=== PATIENT | female | born 1990 | race Caucasian/White ===

== ENCOUNTER → 2023-11-11 | Emergency (ER) | payer SELFPAY ==
[~2023-11-11] MED LIST: AZITHROMYCIN 250 MG TAB ONE; CODEINE 30MG/APAP 300MG TAB ONE; DIPHENHYDRAMINE 25 MG TAB/CAP ONE; IBUPROFEN 400 MG TAB ONE; PROMETHAZINE 25 MG TABLET ONE
--- OUTSIDE RECORDS SUMMARY | 2023-11-11 04:29 | XMS REPORT | Continuity of Care Document ---
Author Name Unknown Address [address] [facility] [address] [place] [address] [facility] Address [address] [facility]. [address] [place] [address] Care Team Providers Care Superintendent Plant Name Role Phone RALPH RUIZ Primary Care Physician Unavailab le RADIOLOGY Attending Clinician Unavailable Radiology Attending Clinician Unavailable Doctor Unassigned, [place] Attending Clinician U navailable Akinsipe Marisol WILKINS Attending Clinician + Cristiane Beltran Attending Clinician [phone] CRISTIANE LANIER Attending Clinician Unavailabl RALPH Fernandez Admitting Clinician Unavailable Payers Payer Name Policy Type Policy Number Effective Date Expirati on Date Source [place] [employer] [id number] 2021 00:00:00 Problems Condition Name Condition Details Condition Category Status Onset Date Resolution Date Last Treatment Date Treating Clinician Comments Source Encounter for surveillan ce of contracept jr pills Encounter for surveillan ce of contracept jr pills Disease Active 7- 00:00: 00 [facility] Excessive or frequent menstruati on Excessive or frequent menstruati on Disease Active 0 6- 00:00: 00 [facility] Well woman exam Well woman exam Disease Active 0 - 00:00: 00 [facility] Well woman exam Well woman exam Disease Active 03-04 00:00: 00 [facility] History of tubal ligation History of tubal ligation Disease Active 02-11 00:00: 00 [facility] Rubella non-immune status, antepartum Rubella non-immune status, antepartum Disease Active 06-10 00:00: 00 Overview: Address in PP visit. 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 Plan repeat pap with cotesting in 2019 [facility] Moderate dysplasia of cervix Moderate dysplasia of cervix Disease Active 03-29 00:00: 00 Overview: Formattin g of this note might be different from the original. LEEP 05/26/2013- path dysplasia negative margins. Os check healing wellFor repeat pap 11/2013: Done 12/21/2013 : __ [facility] Allergies, Adverse Reactions, Alerts Allergy Name Allergy Type Status Severity Reaction(s) Onset Date Inactive Date Treating Clinician Comments Source AMPICILL IN DRUG INGREDI Active Unknown-Cmnt 01-19 00:00: 00 [facility] Ampicill in Propensi ty to adverse reaction s Active Unknown - See comments 01-19 00:00: 00 Taken as a child, pt is unsure what side effects/ reaction she had. [facility] Social History Social Habit Start Date Stop Date Quantity Comments Source Exposure to SARS-CoV-2 (event) Not sure [facility] Tobacco use and exposure 2020-06-14 00:00:00 2020-06-14 00:00:00 Never used [facility] Alcohol intake 2020-06-14 00:00:00 2020-06-14 00:00:00 0 /d [facility] Alcohol Comment 2019-05-19 00:00:00 2019-05-19 00:00:00 occasional [facility] Sex Assigned At 1990 00:00:00 1990 00:00:00 [facility] Smoking Status Start Date Stop Date Source Never smoked tobacco [facility] Medications Ordered Medication Name Filled Medication Name Start Date Stop Date Current Medication? Ordering Clinician Indication Dosage Frequency Signature (SIG) Comments Components Source norethindro ne-e.estrad ioL-iron (MICROGESTI N FE) 1.5 mg-30 mcg (21)/75 mg (7) per tablet 2019-11 00:00: 00 Yes [id number] 1{tbl} Take 1 tablet by mouth daily. [facility] norethindro ne-e.estrad ioL-iron (MICROGESTI N FE) 1.5 mg-30 mcg (21)/75 mg (7) per tablet 2019-11 00:00: 00 Yes [id number] 1{tbl} Take 1 tablet by mouth daily. [facility] norethindro ne-e.estrad ioL-iron (MICROGESTI N FE) 1.5 mg-30 mcg (21)/75 mg (7) per tablet 2019-11 00:00: 00 Yes [id number] 1{tbl} Take 1 tablet by mouth daily. [facility] norethindro ne-e.estrad ioL-iron (MICROGESTI N FE) 1.5 mg-30 mcg (21)/75 mg (7) per tablet 2019-11 00:00: 00 Yes [id number] 1{tbl} Take 1 tablet by mouth daily. [facility] norethindro ne-e.estrad iol-iron (MICROGESTI N FE) 1.5 mg-30 mcg (21)/75 mg (7) per tablet 06-14 00:00: 00 Yes [id number] 1{tbl} Take 1 tablet by mouth daily. [facility] norethindro ne-e.estrad iol-iron (MICROGESTI N FE) 1.5 mg-30 mcg (21)/75 mg (7) per tablet 06-14 00:00: 00 Yes [id number] 1{tbl} Take 1 tablet by mouth daily. [facility] norethindro ne-e.estrad iol-iron (MICROGESTI N FE) 1.5 mg-30 mcg (21)/75 mg (7) per tablet 06-14 00:00: 00 10-26 00:00 :00 No [id number] 1{tbl} Take 1 tablet by mouth daily. [facility] iol-iron (MICROGESTI N FE) 1.5 mg-30 mcg (21)/75 mg (7) per tablet 03-16 00:00: 00 Yes [id number] 1{tbl} Take 1 tablet by mouth daily. [facility] iol-iron (MICROGESTI N FE) 1.5 mg-30 mcg (21)/75 mg (7) per tablet 03-16 00:00: 00 Yes [id number] 1{tbl} Take 1 tablet by mouth daily. [facility] i[facility]-iron (MICROGESTI N FE) 1.5 mg-30 mcg (21)/75 mg (7) per tablet 03-16 00:00: 00 06-14 00:00 :00 No [id number] 1{tbl} Take 1 tablet by mouth daily. [facility] (MICROGESTI N FE) 1.5 mg-30 mcg (21)/75 mg (7) per tablet 03-16 00:00: 00 06-14 00:00 :00 No [id number] 1{tbl} Take 1 tablet by mouth daily. [facility] iol-iron (MICROGESTI N FE) 1.5 mg-30 mcg (21)/75 mg (7) per tablet 2018-11 0 00:00: 00 03-16 00:00 :00 No [id number] 1{tbl} Take 1 tablet by mouth daily. [facility] iol-iron (MICROGESTI N FE) 1.5 mg-30 mcg (21)/75 mg (7) per tablet 05-19 00:00: 00 Yes [id number] 1{tbl} Take 1 tablet by mouth daily. [facility] Vital Signs Vital Name Observation Time Observation Value Shaji dsouza Systolic blood pressure 2020-06-14 13:12:00 110 mm[Hg] [place] [facility] Diastolic blood pressure 2020-06-14 13:12:00 71 mm[Hg] [place] [facility] Heart rate 2020-06-14 13:12:00 74 /min [facility] Body temperature 2020-06-14 13:12:00 36.44 Roxana [facility] Respiratory rate 2020-06-14 13:12:00 16 /min [facility] Body height 2020-06-14 13:12:00 157.5 cm [facility] Body weight 2020-06-14 13:12:00 55.52 kg [facility] BMI 2020-06-14 13:12:00 22.39 kg/m2 [facility] Procedures Procedure Date / Time Performed Performing Clinicia n Source CONSENT/REFUSAL FOR DIAGNOSIS AND TREATMENT 2023-03-31 18:09:22 Doctor Unassigned, [place] [facility] ASSIGNMENT OF BENEFITS 2023-03-31 18:09:03 Docto r Unassigned, [place] [facility] CONSENT/REFUSAL FOR DIAGNOSIS AND TREATMENT 2020-06-14 12:56:19 Doctor Unassigned, [place] [facility] Encounters Start Date/Time End Date/Time Encounter Type Admission Type Attending Clinicians Care Facility Care Department Encounter ID Source 2023-03-31 13:10:11 2023-03-31 23:59:00 Outpatient R RADIOLOGY [facility] [id number] [facility] 2023-03-31 13:10:11 2023-03-31 23:59:00 Hospital Encounter Radiology [facility] [id number] [facility] 2023-03-31 00:00:00 2023-03-31 00:00:00 Orders Only Doctor Unassigned, [place] [facility] [id number] [id number] [facility] 2021-04-25 00:00:00 2021-04-25 00:00:00 Marisol Hernandez [facility] DEHYDROGENATION CONVERTER HELPER [facility] & CHILD [facility] [id number] [id number] [facility] 2020-10-25 00:00:00 2020-10-25 00:00:00 Telephone Cristiane Lanier [facility] DEHYDROGENATION CONVERTER HELPER [facility] CHILD [facility] [id number] [id number] [facility] 2020-06-14 08:00:44 2020-06-14 08:50:01 Office Visit Cristiane Lanier [facility] DEHYDROGENATION CONVERTER HELPER [facility] CHILD [facility] [id number] [facility] 2020-06-14 08:00:00 2020-06-14 08:00:00 Outpatient CRISTIANE EARLY [facility] [id number] [facility] 2020-06-14 00:00:00 2020-06-14 00:00:00 Orders Only Doctor Unassigned, [place] [facility] [id number] [id number] [id number] [facility] 2020-06-13 15:30:00 2020-06-13 15:30:00 Outpatient CRISTIANE EARLY [facility] [id number] [facility] 2020-05-25 08:00:00 2020-05-25 08:00:00 Outpatient CRISTIANE EARLY [facility] [id number] [facility] 2020-03-16 00:00:00 2020-03-16 00:00:00 Telephone Mairsol Figueroa [facility] DEHYDROGENATION CONVERTER [facility] [id number] [id number] [id number] [facility] 2019-06-25 00:00:00 2019-06-25 00:00:00 Telephone Cristiane Lanier [facility] DEHYDROGENATION CONVERTER HELPER [facility] MATERNAL & CHILD [facility]ALTH [facility] [id number] [id number] [id number] [facility]
[2023-11-11 06:10] LABS: SARS-COV-2 RT PCR NEGATIVE (NEGATIVE)
--- NOTE | 2023-11-11 06:17 | ER ---
Nurse's Notes [facility] Name: Magali Rodas Age: 33 yrs Sex: Female : 1990 Arrival Date: 11/11/2023 Time: 04:26 Bed 6 Private MD: Diagnosis: Acute tonsillitis, unspecified Presentation: 11/11 04:40 Chief complaint: Patient states: cough, congestion, runny nose, headache, dizziness, lg3 sore throat since yesterday morning. Coronavirus screen: At this time, unable to obtain information related to travel outside the [place] Client presents with at least one sign or symptom that may indicate coronavirus-19. Standard/surgical mask placed on the client. Ebola Screen: No symptoms or risks identified at this time. Initial Sepsis Screen: Does the patient meet any 2 criteria? No. Patient's initial sepsis screen is negative. Does the patient have a suspected source of infection? No. Patient's initial sepsis screen is negative. Risk Assessment: Do you want to hurt yourself or someone else? Patient reports no desire to harm self or others. Onset of symptoms was November 10, 2023. 04:40 Method Of Arrival: Ambulatory lg3 04:40 Acuity: GAY 4 lg3 Triage Assessment: 04:41 General: Appears in no apparent distress. comfortable, Behavior is calm, cooperative. lg3 Pain: Complains of pain in throat. EENT: No deficits noted. Reports nasal congestion nasal discharge. Neuro: No deficits noted. [place]dwell Agitation-Sedation Scale (RASS): 0 - Alert and Calm Level of Consciousness is awake, alert, obeys commands, Oriented to person, place, time, situation, Reports dizziness, headache. Cardiovascular: No deficits noted. Capillary refill < 3 seconds Clubbing of nail beds is absent JVD is absent Patient's skin is warm and dry. Respiratory: No deficits noted. Reports cough that is Airway is patent Respiratory effort is even, unlabored, Respiratory pattern is regular, symmetrical. GI: No deficits noted. No signs and/or symptoms were reported involving the gastrointestinal system. : No deficits noted. No signs and/or symptoms were reported regarding the genitourinary system. Derm: No deficits noted. No signs and/or symptoms reported regarding the dermatologic system. Skin is intact, is healthy with good turgor, Skin is dry, Skin is normal, Skin temperature is warm. Musculoskeletal: No deficits noted. No signs and/or symptoms reported regarding the musculoskeletal system. Circulation, motion, and sensation intact. Range of motion: intact in all extremities. 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 - Social history:: Smoking status: Patient denies any tobacco usage or history of. Patient uses alcohol, occasionally. - Family history:: not pertinent. Screenin:00 [facility] ED Fall Risk Assessment (Adult) History of falling in the last 3 months, ha1 including since admission No falls in past 3 months (0 pts) Confusion or Disorientation No (0 pts) Intoxicated or Sedated No (0 pts) Impaired Gait No (0 pts) Mobility Assist Device Used No (0 pt) Altered Elimination No (0 pt) Score/Fall Risk Level 0 - 2 = Low Risk Oriented to surroundings, Maintained a safe environment, Educated pt \T\ family on fall prevention, incl call for assistance when getting out of bed, Hourly rounding (assess needs \T\ fall precautionary measures) done. Abuse screen: Denies threats or abuse. Denies injuries from another. Nutritional screening: No deficits noted. Tuberculosis screening: No symptoms or risk factors identified. Assessment: 05:00 General: Appears uncomfortable, Behavior is calm, cooperative. Pain: Complains of pain ha1 in body aches Pain does not radiate. Pain currently is 8 out of 10 on a pain scale. Neuro: Level of Consciousness is awake, alert, obeys commands, Oriented to person, place, time, situation. Cardiovascular: Capillary refill < 3 seconds Patient's skin is warm and dry. Respiratory: Airway is patent Respiratory effort is even, unlabored, Respiratory pattern is regular, symmetrical. Respiratory: Reports cough that is productive, runny nose. Derm: Skin is pink, warm \T\ dry. Musculoskeletal: Circulation, motion, and sensation intact. Range of motion: intact in all extremities. 06:00 Reassessment: Patient and/or family updated on plan of care and expected duration. Pain ha1 level reassessed. Patient is alert, oriented x 3, equal unlabored respirations, skin warm/dry/pink. Vital Signs: 04:40 BP 121 / 87; Pulse 96; Resp 17 S; Temp 98.3(O); Pulse Ox 99% on R/A; Weight 61.69 kg lg3 (R); Height 5 ft. 2 in. (R); 05:15 BP 118 / 83; Pulse 82; Resp 17 S; Pulse Ox 97% on R/A; ha1 06:12 BP 116 / 79; Pulse 75; Resp 16; Pulse Ox 96% ; kl 04:40 Body Mass Index 24.87 (61.69 kg, 157.48 cm) lg3 ED Course: 04:28 Patient arrived in ED. gm2 04:41 Triage completed. lg3 04:41 Arm band placed on right wrist. lg3 04:44 Patient has correct armband on for positive identification. Placed in gown. Bed in low ha1 position. Call light in reach. Side rails up X 1. Adult w/ patient. 04:48 Tony Cameron MD is Attending Physician. sp4 04:48 Strep Sent. lg3 04:48 COVID-19/FLU A+B/RSV Sent. lg3 06:32 No provider procedures requiring assistance completed. Patient did not have IV access ha1 during this emergency room visit. 06:33 Provided Education on: MEDICATION ADMINISTRATION . ha1 Administered Medications: 05:28 Drug: Acetaminophen-Codeine PO (300 mg-30 mg) 2 tabs PO once; RASS on ADMIN: Combtv4, kl Very Agttd3, Agttd2, Rstlss1, AlertClm0, Drwsy-1, Lt Sdtn-2, Mod Sdtn-3, Dp Sdtn-4, UnArsble-5 Route: PO; 06:34 Follow up: Response: No adverse reaction; Pain is decreased; RASS: Alert and Calm (0) ha1 05:28 Drug: Ibuprofen PO 800 mg PO once Route: PO; kl 06:34 Follow up: Response: No adverse reaction; Pain is decreased ha1 05:28 Drug: Promethazine PO 25 mg PO once Route: PO; kl 06:34 Follow up: Response: No adverse reaction; Pain is decreased ha1 05:28 Drug: AZITHromycin PO 500 mg PO once Route: PO; kl 06:33 Follow up: Response: No adverse reaction ha1 05:28 Drug: diphenhydrAMINE PO 25 mg PO once Route: PO; kl 06:33 Follow up: Response: No adverse reaction ha1 Medication: 06:33 VIS not applicable for this client. ha1 Outcome: 06:16 Discharge ordered by . chaz 06:32 Discharged to home via wheelchair, with family, ha1 06:32 Condition: stable 06:32 Discharge instructions given to patient, family, Instructed on discharge instructions, follow up and referral plans. medication usage, Demonstrated understanding of instructions, follow-up care, medications, Prescriptions given X 4, 06:34 Patient left the ED. ha1 Signatures: Lilliana Sher RN RN kl Able, Lacie, RN RN 3 Brigid Aiken RN RN ha1 Tony Cameron MD MD sp4 Sultana Collazo 2
--- NOTE | 2023-11-11 06:17 | EDPHYS ---
Physician Documentation [facility] Name: Magali Rodas Age: 33 yrs Sex: Female : 1990 Arrival Date: 11/11/2023 Time: 04:26 Bed 6 Private MD: ED Physician Tony Cameron HPI: 11/11 04:49 This 33 yrs old Female presents to ER via Ambulatory with complaints of Flu sp4 Symptoms. 05:12 3-year-old female presents with acute onset of cough, sore throat, headache, chills, sp4 body aches, fatigue all starting yesterday. Patient denies fever.. 05:12 Patient states she takes control [place] p.o.. 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 - Social history:: Smoking status: Patient denies any tobacco usage or history of. Patient uses alcohol, occasionally. - Family history:: not pertinent. ROS: 05:12 Constitutional: Positive chills, negative fever, positive sore throat, positive sp4 headache, positive for fatigue 05:12 All other systems are negative, Exam: 05:12 Constitutional: This is a well developed, well nourished patient who is awake, alert, sp4 and in no acute distress. Head/Face: Normocephalic, atraumatic. Eyes: Pupils equal round and reactive to light, extra-ocular motions intact. Lids and lashes normal. Conjunctiva and sclera are not injected. Cornea within normal limits. Periorbital areas with no swelling, redness, or edema. ENT: Nares patent. No nasal discharge, no septal abnormalities noted. Tympanic membranes are normal and external auditory canals are clear. Oropharynx with positive bilateral tonsillar erythema, redness, swelling, uvular swelling as well. Also exudates bilaterally Neck: Trachea midline, no thyromegaly or masses palpated, and no cervical lymphadenopathy. Supple, full range of motion without nuchal rigidity, or vertebral point tenderness. Chest/axilla: Normal chest wall appearance and motion. Nontender with no deformity. No lesions are appreciated. Cardiovascular: Regular rate and rhythm with a normal S1 and S2. No gallops, murmurs, or rubs. Normal PMI, no JVD. No pulse deficits. Respiratory: Lungs have equal breath sounds bilaterally, clear to auscultation and percussion. No rales, rhonchi or wheezes noted. No increased work of breathing, no retractions or nasal flaring. Abdomen/GI: Soft, non-tender, with normal bowel sounds. No distension or tympany. No guarding or rebound. No evidence of tenderness throughout. Back: No spinal tenderness. No costovertebral tenderness. Skin: Warm, dry with normal turgor. Normal color with no rashes, no lesions, and no evidence of cellulitis. MS/ Extremity: Pulses equal, no cyanosis. Neurovascular intact. Full, normal range of motion. Neuro: Awake and alert, GCS 15, oriented to person, place, time, and situation. Cranial nerves II-XII grossly intact. Motor strength 5/5 in all extremities. Sensory grossly intact. Psych: Awake, alert, with orientation to person, place and time. Behavior, mood, and affect are within normal limits Vital Signs: 04:40 BP 121 / 87; Pulse 96; Resp 17 S; Temp 98.3(O); Pulse Ox 99% on R/A; Weight 61.69 kg lg3 (R); Height 5 ft. 2 in. (R); 05:15 BP 118 / 83; Pulse 82; Resp 17 S; Pulse Ox 97% on R/A; ha1 06:12 BP 116 / 79; Pulse 75; Resp 16; Pulse Ox 96% ; kl 04:40 Body Mass Index 24.87 (61.69 kg, 157.48 cm) lg3 MDM: 05:15 Differential Diagnosis altered mental status, sepsis, flu. Data reviewed: vital signs, sp4 nurses notes, lab test result(s), Flu:. 05:17 Patient medically screened. sp4 06:16 Consideration of Admission/Observation Escalation of care including sp4 admission/observation considered. ED course: Influenza and COVID test negative. 11/11 04:44 Order name: COVID-19/FLU A+B/RSV; Complete Time: 06:16 lg3 11/11 04:44 Order name: Strep; Complete Time: 06:24 lg3 11/11 06:20 Order name: Throat Culture EDMS Administered Medications: 05:28 Drug: Acetaminophen-Codeine PO (300 mg-30 mg) 2 tabs PO once; RASS on ADMIN: Combtv4, kl Very Agttd3, Agttd2, Rstlss1, AlertClm0, Drwsy-1, Lt Sdtn-2, Mod Sdtn-3, Dp Sdtn-4, UnArsble-5 Route: PO; 06:34 Follow up: Response: No adverse reaction; Pain is decreased; RASS: Alert and Calm (0) ha1 05:28 Drug: Ibuprofen PO 800 mg PO once Route: PO; kl 06:34 Follow up: Response: No adverse reaction; Pain is decreased ha1 05:28 Drug: Promethazine PO 25 mg PO once Route: PO; kl 06:34 Follow up: Response: No adverse reaction; Pain is decreased ha1 05:28 Drug: AZITHromycin PO 500 mg PO once Route: PO; kl 06:33 Follow up: Response: No adverse reaction ha1 05:28 Drug: diphenhydrAMINE PO 25 mg PO once Route: PO; kl 06:33 Follow up: Response: No adverse reaction ha1 Disposition Summary: 11/11/23 06:16 Discharge Ordered Notes: Location: Home sp4 Problem: new sp4 Symptoms: have improved sp4 Condition: Stable sp4 Diagnosis - Acute tonsillitis, unspecified sp4 Followup: sp4 - With: Private Physician - When: 5 - 6 days - Reason: Discharge Instructions: - Discharge Summary Sheet sp4 - Tonsillitis sp4 Forms: - Work release form ha1 - Family Work Release ha1 - Patient Portal Instructions sp4 Prescriptions: - dextromethorphan-guaifenesin 10-200 mg Oral capsule - take 2 capsule ORAL route every 6 hours PRN cough; 60 capsule; Refills: 0, sp4 Product Selection Permitted - Ibuprofen 800 mg Oral Tablet - take 1 tablet ORAL route every 8 hours As needed take with food; 30 tablet; sp4 Refills: 0, Product Selection Permitted - Zithromax Z-Edson 250 mg Oral Tablet - take 1 tablet ORAL route as directed for 5 days Day 1 - take two (2) tablets sp4 one time. Day 2, 3, 4 , 5 take one (1) tablet once daily.; 6 tablet; Refills: 0, Product Selection Permitted - promethazine 25 mg Oral Tablet - take 1 tablet ORAL route every 6 hours As needed; 20 tablet; Refills: 0, sp4 Product Selection Permitted Signatures: Dispatcher [employer] Lilliana Diaz RN RN kl Able, Lacie, RN RN lg3 Tony Cameron MD MD sp4 Brigid Aiken RN ha1
[2023-11-11 12:06] VITALS: BP 116/79; TEMP 98.3; O2SAT 96
== END ==
LOC: ER 04:26
DX: J03.90 Acute tonsillitis, unspecified (principal); Z11.52 Encounter for screening for COVID-19
CPT/HCPCS: 0241U; 87070; 87081; 99284; Q0169